=== PATIENT | male | born 1940 | race Caucasian/White ===

== ENCOUNTER 2016-12-24 08:00 | Outpatient (CLI) | payer MEDICARE, OTHER | END 2016-12-24 23:59 | DX: E78.5 Hyperlipidemia, unspecified (principal); R73.01 Impaired fasting glucose; I10 Essential (primary) hypertension ==

== ENCOUNTER 2017-04-10 10:52 | Outpatient (CLI) | payer MEDICARE, OTHER | END 2017-04-10 10:53 | disposition home or self-care (01) | LOC: DI 10:52 | PROVIDERS: ATTEND Family Medicine | DX: I50.9 Heart failure, unspecified (principal); I08.1 Rheumatic disorders of both mitral and tricuspid valves; Z95.2 Presence of prosthetic heart valve | CPT/HCPCS: 93306 ==